=== PATIENT | male | born 1945 | race Caucasian/White ===

== ENCOUNTER 2024-06-19 12:42 | Observation (INO) | payer MEDICARE ==
[~2024-06-19] VITALS: Ht 185.4 cm; Wt 75.9 kg
[~2024-06-19 12:42] MED LIST: BREX1TAB PO; LEVO75TA10 PO; MIRT45TA83 PO; OMEP20TA20 PO; PARO40TA72 PO; PAROXETINE HCL JT; ROSU40TA88 PO
--- NOTE | 2024-06-19 14:12 | ERN ---
ED Note History of Present Illness Stated Complaint: FEEDING TUBE Chief Complaint: Other Problems Time Seen by MD: 12:45 Dictation: 78-year-old male presents to the ED for J-tube evaluation. As per , patient has history of esophageal cancer, had the J tube placed on June 02 and was recently discharged from the hospital 4 days ago. Patient was placed on continuos feedings since he is unable to take anything by mouth and mentioned that this morning they were unable to flush the J tube. Allergies: Coded Allergies: No Known Allergies (Unverified Allergy, Unknown, 05/22/24) Home Meds Reported Medications [Paroxetine Hcl] No Conflict Check, 20 ML JT DAILY 06/13/24 Rosuvastatin Calcium (Rosuvastatin Calcium) 40 Mg Tablet, 1 TAB PO DAILY 05/23/24 Omeprazole (Omeprazole) 20 Mg Tablet.dr, 1 TAB PO DAILY for 30 Days, #30 TAB 0 Refills 05/23/24 Brexpiprazole (Rexulti) 1 Mg Tablet, 1 TAB PO DAILY for 30 Days, #30 TAB 0 Refills 05/23/24 Mirtazapine (Mirtazapine) 45 Mg Tablet, 1 TAB PO HS for 30 Days, #30 TAB 0 Refil ls 05/23/24 Paroxetine HCl (Paroxetine HCl) 40 Mg Tablet, 1 TAB PO DAILY for 30 Days, #30 TAB 0 Refills 05/23/24 Levothyroxine Sodium (Levothyroxine Sodium) 75 Mcg Tablet, 1 TAB PO ACBKFST for 30 Days, #30 TAB 0 Refills 05/23/24 Past Medical History Past Medical History: Cancer, Pneumonia Surgical History: Other Surgical History Other: J TUBE Review of System Dictation Constitutional: Negative for fever,chills, and weight loss Eyes: Negative for injury, pain,redness, and discharge ENT: Negative for injury,pain or swelling Cardiovascular: Negative for chest pain, palpitations, and edema Respiratory: Negative for shortness of breath, cough, and wheezing, Abdomen/GI: Positive J tube evaluation Negative for abdominal pain, nausea, vomiting, diarrhea, and constipation Back: Negative for injury and pain : Negative for injury, bleeding and discharge MS/Extremity: Negative for injury and deformity Skin: Negative for rash, and discoloration Neuro: Negative for headache, weakness, numbness, tingling, and seizure Psych: Negative for suicide ideation, homicidal ideation, and hallucinations Initial Vital Sign VS Vital Signs Date Time Temp Pulse Resp B/P (MAP) Pulse Ox O2 Delivery O2 Flow Rate FiO2 06/19/24 12:44 98.2 95 18 120/78 94 Room Air 0 06/19/24 12:49 21 Physical Exam Dictation General: awake, alert, NAD Head/Face: Normocephalic, atraumatic Eyes: PERRL, EOMI, vision at baseline ENT: oral cavity clear, TMs clear, no signs of infection Neck: Trachea midline, supple, no nuchal rigidity Cardiovascular: RRR, normal S1/S2, No MRGs, no JVD Respiratory: CTAB, no respiratory distress, No rales or wheezes Abdomen: Soft, non-tender, non-distended, normal bowel sounds, no guarding or rebound. J tube in place, unable to flush Skin: Warm, dry, normal turgor, no rash MS/Extremity: Pulses equal, no cyanosis, neurovascular intact, FROM Neuro: COAx4, GCS 15, strength 5/5, CN 2-12 intact, normal cerebellar exam, normal gait, Psych: Normal behavior, mood, and affect normal Results (Laboratory/Radiology) Laboratory/Radiology Laboratory Tests Test 06/19/24 14:02 White Blood Count 10.5 K/uL (4.8-10.8) Red Blood Count 3.74 MIL/uL (4.50-6.20) L Hemoglobin 11.5 g/dL (14.0-18.0) L Hematocrit 35.5 % (42-54) L Mean Corpuscular Volume 94.9 fL (79-99) Mean Corpuscular Hemoglobin 30.7 pg (27.0-33.0) Mean Corpuscular Hemoglobin Concent 32.4 g/dL (32.0-36.0) Red Cell Distribution Width 14.6 % (11.0-15.5) Platelet Count 421 K/uL (130-400) H Mean Platelet Volume 10.3 fL (7.5-10.5) Immature Granulocyte % (Auto) 2.8 % (0-1) H Neutrophils (%) (Auto) 57.7 % (40.0-77.0) Lymphocytes (%) (Auto) 28.1 % (21.0-51.0) Monocytes (%) (Auto) 7.4 % (3.0-13.0) Eosinophils (%) (Auto) 3.0 % (0.0-8.0) Basophils (%) (Auto) 1.0 % (0.0-5.0) Neutrophils # (Auto) 6.1 K/uL (1.8-7.7) Lymphocytes # (Auto) 3.0 K/uL (1.0-4.8) Monocytes # (Auto) 0.8 K/uL (0.1-1.0) Eosinophils # (Auto) 0.32 K/uL (0.00-0.70) Basophils # (Auto) 0.10 K/uL (0.00-0.20) Absolute Immature Granulocyte (auto 0.29 K/uL (0-1) Nucleated Red Blood Cells 0.0 % (0.0-0.19) Prothrombin Time 10.7 SEC (9.6-11.6) Prothromb Time International Ratio 0.95 (0.85-1.15) Activated Partial Thromboplast Time 25.9 SEC (26.3-35.5) L Sodium Level 137 mmol/L (136-145) Potassium Level 4.5 mmol/L (3.5-5.1) Chloride Level 100 mmol/L (101-111) L Carbon Dioxide Level 28 mmol/L (21-32) Blood Urea Nitrogen 20 mg/dL (7-18) H Creatinine 1.0 mg/dL (0.5-1.3) Glomerular Filtration Rate Calc 78 mL/min (>90) Random Glucose 104 mg/dL (70-105) Total Calcium 9.4 mg/dL (8.5-10.1) Labs Reviewed?: Yes ED Course ED Course Orders Procedure Category Date Status Time Cbc With Differential LAB 06/19/24 Complete 13:19 Basic Metabolic Panel LAB 06/19/24 Complete 13:19 Pt And Ptt LAB 06/19/24 Complete 13:19 Dextrose 5 % And 0.9 PHA 06/19/24 In Process % Nacl (D5ns) 13:30 Current Medications Medications (Trade) Dose Ordered Sig/Arun Route PRN Reason Start Time Stop Time Status Last Admin Dose Admin Dextrose/Sodium Chloride 1,000 ml @ 125 mls/hr ONCE ONCE IV 06/19/24 13:30 06/19/24 21:29 06/19/24 14:34 Vital Signs Date Time Temp Pulse Resp B/P (MAP) Pulse Ox O2 Delivery O2 Flow Rate FiO2 06/19/24 14:01 98.2 92 18 120/78 96 Room Air* 0 06/19/24 12:49 98.2 95 18 120/78 94 Room Air* 0 06/19/24 12:44 98.2 95 18 120/78 94 Room Air 0 Medical Decision Making MDM MDM: Differential diagnosis: J-tube problem, J-tube replacement, feeding tube complication [id number] consult, accepts patient for admission Previous outside records reviewed: Old ER visits. Need for hospitalization: Patient does meet criteria for hospitalization. Need for emergency major/minor surgery: No Patient's prior external medical records from other ER visits were reviewed by me as indicated. Prior testing and results from previous visits were reviewed. Prior tests were taken into account with medical decision making and resource utilization, independent historian/historians were used to obtain complete medical history. I independently interpreted the test that were performed, results were reviewed by me and considered findings on radiology if ordered. Medical management and examination interpretation discussions were had by me with other qualified healthcare professionals as indicated for the patient's care. DX & DISP Disposition: Inpatient Decision to Admit Date: Jun 19, 2024 Decision to Admit Time: 15:40 Departure Impression: Primary Impression: Complication of feeding tube Condition: Stable Referrals: DONITA LARA M.D. (PCP) LIO ROMEO MD Jun 19, 2024 14:12
[2024-06-19 14:27] LABS: EOSINOPHILS # (AUTO) 0.32 K/uL (0.00-0.70); HEMATOCRIT 35.5 % (42-54); IMMATURE GRANULOCYTE ABSOLUTE 0.29 K/uL (0-1); LYMPHOCYTES % (AUTO) 28.1 % (21.0-51.0); MEAN CORPUSCULAR HEMOGLOBIN 30.7 pg (27.0-33.0); MEAN CORPUSCULAR HGB CONC 32.4 g/dL (32.0-36.0); MEAN CORPUSCULAR VOLUME 94.9 fL (79-99); MONOCYTES # (AUTO) 0.8 K/uL (0.1-1.0); MONOCYTES % (AUTO) 7.4 % (3.0-13.0); NEUTROPHILS # (AUTO) 6.1 K/uL (1.8-7.7); NEUTROPHILS % (AUTO) 57.7 % (40.0-77.0); PLATELET COUNT (AUTO) 421 K/uL (130-400); RED BLOOD CELL COUNT(AUTO) 3.74 MIL/uL (4.50-6.20); RED CELL DISTRIBUTION WIDTH 14.6 % (11.0-15.5); WHITE BLOOD COUNT (AUTO) 10.5 K/uL (4.8-10.8)
[2024-06-19 14:31] LABS: POTASSIUM 4.5 mmol/L (3.5-5.1)
[2024-06-19 14:33] LABS: INR 0.95 (0.85-1.15); PROTHROMBIN TIME 10.7 SEC (9.6-11.6)
[2024-06-19 14:34] LABS: PARTIAL THROMBOPLASTIN TIME 25.9 SEC (26.3-35.5)
[2024-06-19] MEDS: DEXTROSE 5 % AND 0.9 % NACL 1,000 ML IV ONE (14:34)
[2024-06-19] MEDS ORDERED: LACTULOSE 20 GM/30 ML UDCUP PO PRN (16:00)
[2024-06-19] MEDS ORDERED: doCUSate SODIUM 100 MG CAP PO PRN (16:00)
[2024-06-19] MEDS ORDERED: ondanSETRON 4MG INJ IV PRN (16:00)
[2024-06-19] MEDS ORDERED: DiphenhydrAMINE HCL 25 MG CAPSULE PO PRN (16:00)
[2024-06-19] MEDS ORDERED: ARTIFICAL TEARS SOL 15 ML OP PRN (16:00)
[2024-06-19] MEDS ORDERED: NITROGLYCERIN 0.4 MG SL TAB SL PRN (16:00)
[2024-06-19] MEDS ORDERED: LIDOCAINE HCL 2% VISCOUS 30 ML, MAG/ALUM/SIMETH 30ML 30 ML, DICYCLOMINE HCL 20 MG PO PRN (16:00)
[2024-06-19] MEDS ORDERED: BENZOCAINE/MENTH/CETYLPYRD CL 1 EACH LOZENGE MM PRN (16:00)
[2024-06-19] MEDS ORDERED: guaiFENesin SUGAR-FREE 100 MG/5 ML UDCUP PO PRN (16:00)
[2024-06-19] MEDS ORDERED: polyETHYLene GLYCol 3350 17 GM POWD.PACK PO PRN (16:00)
[2024-06-19] MEDS ORDERED: guaiFENesin-DM 200/20MG 10ML PO PRN (16:00)
[2024-06-19] MEDS ORDERED: acetaMINOPHEN 325 MG TAB PO PRN ×2 (16:00)
[2024-06-19] MEDS ORDERED: MAG/ALUM/SIMETH 30 ML UDCUP PO PRN (16:00)
[2024-06-19] MEDS: INSULIN LISpro 100 UNIT/ML 3ML SQ SCH (16:14)
--- NOTE | 2024-06-19 16:30 | NUR ---
PER DR STEIN, DR BRICEÑO NEEDS TO BE CONSULTED FOR POST OP ISSUES, DR STEIN MADE AWARE THAT DR BRICEÑO IS OUT OF TOWN, CONSULT WILL BE ATTEMPTED AGAIN FOR SIDE FRAMER SX
--- NOTE | 2024-06-19 17:59 | HP ---
[facility] HISTORY & PHYSICAL Date Patient Seen: Jun 19, 2024 Time of Visit: 1929 Supervising Physician: [Dr. Abdoul Mata ] Primary Care Physician: [Dr. Katharina Reed ] Outpatient Specialists: [Der. Campuzano-onco, Dr. Verduzco-psych ] Inpatient Consults: [Dr. Dupree-surgery ] PROBLEM LIST: Clogged J-Tube-POA Adenocarcinoma of esophagus EUS findings on 05/24/2024 Dysphagia secondary to above s/p J-tube placement 05/26/[address] Dupree Stomach CA HLD Hypertriglyceridemia Depression Anxiety Recent hospitalization for acute hypoxic respiratory failure, requiring BIPAP on 06/03/24, resolved Recent hospitalization bilateral pneumonia, worsening from arrival (Minimal left lung pulmonary infiltrates on 06/11/24) Recent hospitalization 2/2 small bowel obstruction, S/P exp laparotomy and Joseu enteroenterostomy 06/02/24 S/P Port-A-Cath placement. Recent hospitalization acute dehydration and electrolyte derangements Recent hospitalization for acute urinary retention requiring Sullivan catheter, remains a problem, discharged with sullivan catheter until a referral to urologist is obtained Hiatal hernia moderate in size, per CT 05/08/24 PLAN: -Admit to medsurg unit -Consult Dr. Dupree in am, dayteam to follow-up pls -IV fluid for hydration -Monitor electrolytes, replete PRN -Manage abdominal pain and N/V PRN -Resume Jevity 1.5 once J-tube is cleared for use by surgery team HPI: [Patient is a 78-year-old male with PMH significant for esophageal and stomach CA, depression, anxiety, HLD and hypothyroidism who has presented to the ED accompanied by his concerning a clogged J-tube. The claims that after she connected the patient to the Jevity 1.5 feeding pump, she went to attend to her errands and appointments and when she returned home, she noticed that the J- tube appears to be clogged. It was verified by the home health nurse and confirmed of the malfunction that led them to come to the ED for evaluation. Oth erwise, patient denies any other issues or concerns. Apparently, they waited for quite some time in the ED with staff attemted multiple times to fix the J-tube without success. Right before I came to visit the patient, the said that one of the nurses tried to use soda and was able to flush the J-tube finally. However, she wanted to make evaluate the tube because it was only inserted on 06/02 and she wants to make sure that everything was well. Physical assessment was unrevealing without erythema or discharges from the J-tube exit site. Goals of care were discussed with the patient and , verbalizing understanding and agreement. PAST MEDICAL HX: see above PAST SURGICAL HX: noncontributory SOCIAL HISTORY: No tobacco, ETOH, or illicit drug use Coded Allergies: No Known Allergies (Unverified Allergy, Unknown, 05/22/24) REVIEW OF SYSTEMS: 12 point ROS reviewed with patient. Pertinent positives mentioned above. Otherwise negative. PHYSICAL EXAM: GENERAL: alert, weak, awake oriented x 3 HEENT: EOMI, Sclera non icteric, moist mucosa NECK: Supple, no JVD, trachea midline LUNGS: Clear breath sounds bilaterally. No wheezes HEART: Regular rate and rhythm. Normal S1 and S2, without murmurs ABD: Abdomen soft, nontender. Bowel sounds present, mid-abdominal incision with nimco in palced, J-tube in situ EXT: No clubbing cyanosis or edema NEURO: Alert and oriented to person, follows commands Vital Signs (last 8hr) Date Time Temp Pulse Resp B/P (MAP) Pulse Ox O2 Delivery O2 Flow Rate FiO2 06/19/24 17:16 98.2 88 18 124/74 94 Room Air* 0 21 06/19/24 14:01 98.2 92 18 120/78 96 Room Air* 0 06/19/24 12:49 98.2 95 18 120/78 94 Room Air* 0 21 06/19/24 12:44 98.2 95 18 120/78 94 Room Air 0 LABS: Hematology Labs: Test 06/19/24 14:02 Range/Units White Blood Count 10.5 4.8-10.8 K/uL Red Blood Count 3.74 L 4.50-6.20 MIL/uL Hemoglobin 11.5 L 14.0-18.0 g/dL Hematocrit 35.5 L 42-54 % Mean Corpuscular Volume 94.9 79-99 fL Mean Corpuscular Hemoglobin 30.7 27.0-33.0 pg Mean Corpuscular Hemoglobin Concent 32.4 32.0-36.0 g/dL Red Cell Distribution Width 14.6 11.0-15.5 % Platelet Count 421 H 130-400 K/uL Mean Platelet Volume 10.3 7.5-10.5 fL Immature Granulocyte % (Auto) 2.8 H 0-1 % Neutrophils (%) (Auto) 57.7 40.0-77.0 % Lymphocytes (%) (Auto) 28.1 21.0-51.0 % Monocytes (%) (Auto) 7.4 3.0-13.0 % Eosinophils (%) (Auto) 3.0 0.0-8.0 % Basophils (%) (Auto) 1.0 0.0-5.0 % Neutrophils # (Auto) 6.1 1.8-7.7 K/uL Lymphocytes # (Auto) 3.0 1.0-4.8 K/uL Monocytes # (Auto) 0.8 0.1-1.0 K/uL Eosinophils # (Auto) 0.32 0.00-0.70 K/uL Basophils # (Auto) 0.10 0.00-0.20 K/uL Absolute Immature Granulocyte (auto 0.29 0-1 K/uL Nucleated Red Blood Cells 0.0 0.0-0.19 % Chemistry Labs: Test 06/19/24 14:02 Range/Units Sodium Level 137 136-145 mmol/L Potassium Level 4.5 3.5-5.1 mmol/L Chloride Level 100 L 101-111 mmol/L Carbon Dioxide Level 28 21-32 mmol/L Blood Urea Nitrogen 20 H 7-18 mg/dL Creatinine 1.0 0.5-1.3 mg/dL Glomerular Filtration Rate Calc 78 >90 mL/min Random Glucose 104 70-105 mg/dL Total Calcium 9.4 8.5-10.1 mg/dL Coagulation Labs: Test 06/19/24 14:02 Range/Units Prothrombin Time 10.7 9.6-11.6 SEC Prothromb Time International Ratio 0.95 0.85-1.15 Activated Partial Thromboplast Time 25.9 L 26.3-35.5 SEC DIAGNOSTICS / RADIOLOGY RESULTS: [ ] PLAN NEURO: Minimize central acting medications as possible. Maintain fall precautions, adequate lighting during the day PULMONARY: Supplemental 02 as needed. Maintain aspiration precautions at all times CARDIOVASCULAR: Follow hemodynamics. Vital signs per facility protocol GI & NUTRITION: Continue with nutritional support. Continue stool softeners and laxatives as needed. KIDNEYS & ELECTROLYTES: Strict monitoring of intake, output and overall fluid balance. Avoid nephrotoxic medications to the extent possible. Medications to be dosed according to renal function. Monitor electrolytes and replace as needed ENDOCRINE: Maintain blood glucose between 100-180 at all times. Hypoglycemia protocol in place INFECTIOUS DISEASE: Trend temperature, WBC and procalcitonin level Follow cultures, deescalate antibiotics as soon as possible. Panculture if new onset fever ONCOLOGY/HEMATOLOGY/COAGULATION: Monitor for s/s of bleeding Monitor hemoglobin, coagulation studies as needed SKIN: Pressure ulcer prevention per facility protocol Specialty mattress ORTHO/REHAB: Continue PT/OT Prophylaxis: Continue GI and DVT prophylaxis Code Status: Full Resuscitation Disposition: TBD Other: Total patient care time: 35 minutes MAKENNA REAL Jun 19, 2024 17:59
[2024-06-19] MEDS: FAMOTIDINE 20MG TAB PO SCH (21:00)
[2024-06-19] MEDS ORDERED: FAMOTIDINE 20MG VIAL IV SCH (21:00)
--- NOTE | 2024-06-19 21:23 | NUR ---
PATIENT DID NOT BRING HOME MEDICATIONS
[2024-06-19 22:00] VITALS: BP 133/82; PULSE 86; RESP 18; TEMP 99.8
[2024-06-20] MEDS: DiphenhydrAMINE HCL 50 MG/ML VIAL IV PRN (03:38)
[2024-06-20] MEDS: DEXTROSE 5 % AND 0.9 % NACL 1,000 ML IV SCH (03:40)
[2024-06-20 04:00] VITALS: BP 125/70; PULSE 82; RESP 20; TEMP 98.7
[2024-06-20] MEDS ORDERED: acetaMINOPHEN 325 MG TAB JT PRN (04:00)
[2024-06-20] MEDS ORDERED: guaiFENesin SUGAR-FREE 100 MG/5 ML UDCUP JT PRN (04:00)
[2024-06-20] MEDS: FAMOTIDINE 20MG VIAL IV SCH (07:55)
[2024-06-20 08:08] VITALS: BP 132/71; PULSE 88; RESP 20; TEMP 98.7
[2024-06-20 08:15] VITALS: O2SAT 95
[2024-06-20 11:46] VITALS: BP 119/78; PULSE 85; RESP 19; TEMP 98
--- NOTE | 2024-06-20 15:18 | DS ---
[facility] DISCHARGE SUMMARY Date Patient Seen: Jun 20, 2024 Time of Visit: 15:17 Supervising Physician: Dr. Abdoul Maat Primary Care Physician: [Dr. Katharina Reed ] Outpatient Specialists: [Der. Campuzano-onco, Dr. Verduzco-psych ] Inpatient Consults: [Dr. Dupree-surgery ] HOSPITAL COURSE: HPI (per admitting provider) Patient is a 78-year-old male with PMH significant for esophageal and stomach CA, depression, anxiety, HLD and hypothyroidism who has presented to the ED accompanied by his concerning a clogged J-tube. The claims that after she connected the patient to the Jevity 1.5 feeding pump, she went to attend to her errands and appointments and when she returned home, she noticed that the J- tube appears to be clogged. It was verified by the home health nurse and confirmed of the malfunction that led them to come to the ED for evaluation. Otherwise, patient denies any other issues or concerns. Apparently, they waited for quite some time in the ED with staff attemted multiple times to fix the J- tube without success. Right before I came to visit the patient, the said that one of the nurses tried to use soda and was able to flush the J-tube finally. However, she wanted to make evaluate the tube because it was only inserted on 06/02 and she wants to make sure that everything was well. Physical assessment was unrevealing without erythema or discharges from the J- tube exit site. Goals of care were discussed with the patient and , verbalizing understanding and agreement. The patient was treated for the following problems: Patient's J-tube was cleared in the ED, surgical team evaluated the patient and was able to flush the tube, education was provided regarding do's and don'ts with a J-tube, how to flush properly, including volume of water. Patient was discharged home under the care of his family. ACTIVE PROBLEM LIST FOR THE HOSPITALIZATION: Clogged J-Tube-POA CHRONIC PROBLEMS: continue previous management per PCP unless otherwise indicated Adenocarcinoma of esophagus EUS findings on 05/24/2024 Dysphagia secondary to above s/p J-tube placement 05/26/[address] Dupree Stomach CA HLD Hypertriglyceridemia Depression Anxiety Recent hospitalization for acute hypoxic respiratory failure, requiring BIPAP on 06/03/24, resolved Recent hospitalization bilateral pneumonia, worsening from arrival (Minimal left lung pulmonary infiltrates on 06/11/24) Recent hospitalization 2/2 small bowel obstruction, S/P exp laparotomy and Josue enteroenterostomy 06/02/24 S/P Port-A-Cath placement. Recent hospitalization acute dehydration and electrolyte derangements Recent hospitalization for acute urinary retention requiring Sullivan catheter, remains a problem, discharged with sullivan catheter until a referral to urologist is obtained Hiatal hernia moderate in size, per CT 05/08/24 [facility] FINDINGS/RECOMMENDATIONS: [ ] PROCEDURES: as mentioned above DISCHARGE MEDICATIONS: Pt hemodynamically stable and afebrile at time of discharge. PCP notified of patients admission, hospital course and discharge. PHYSICAL EXAM: GENERAL: alert, weak, awake oriented x 3 HEENT: EOMI, Sclera non icteric, moist mucosa NECK: Supple, no JVD, trachea midline LUNGS: Clear breath sounds bilaterally. No wheezes HEART: Regular rate and rhythm. Normal S1 and S2, without murmurs ABD: Abdomen soft, nontender. Bowel sounds present, mid-abdominal incision with nimco in palced, J-tube in situ EXT: No clubbing cyanosis or edema NEURO: Alert and oriented to person, follows commands FOLLOW-UP: Follow-up with PCP in 2-3 days RECOMMENDATIONS: See Discharge Instructions This case was seen and discussed with my supervising physician. More than 30 minutes spent on discharge process, including evaluation of the patient, discussion with nursing staff, medication reconciliation and follow-up appointments SCAR HUERTAS Jun 20, 2024 15:17
--- NOTE | 2024-06-20 15:26 | PN ---
PROGRESS NOTE Date of Service: Jun 20, 2024 Time of Service: 15:24 SUBJECTIVE: [ Patient presented to the hospital due to the fact that his G-tube was clogged. I personally spoke to the ER nurse invited to inject some soda into the tube weight for about 15-20 minutes then flushed it out. This seemed to work in the now the tube is functioning well. Patient is awaiting for his tube feeds to be restarted. Patient denies any pain. Patient indicates he has been tolerating his tube feeds well as well as having bowel function. ] REVIEW OF SYSTEMS PHYSICAL EXAM Awake, alert, oriented x3 Unlabored Regular rate and rhythm Abdomen soft, nontender, nondistended, incision clean dry, J-tube in place. J- tube flushes well. Vital Signs (last 8hr) Date Time Temp Pulse Resp B/P (MAP) Pulse Ox O2 Delivery O2 Flow Rate FiO2 06/20/24 11:46 98.1 85 19 119/78 96 Room Air 21 06/20/24 08:15 95 Room Air* 0 21 06/20/24 08:08 98.8 88 20 132/71 95 Room Air 21 LABS: Laboratory: Test 06/20/24 11:18 06/19/24 14:02 Range/Units Whole Blood Glucose 105 70-110 MG/DL White Blood Count 10.5 4.8-10.8 K/uL Red Blood Count 3.74 L 4.50-6.20 MIL/uL Hemoglobin 11.5 L 14.0-18.0 g/dL Hematocrit 35.5 L 42-54 % Mean Corpuscular Volume 94.9 79-99 fL Mean Corpuscular Hemoglobin 30.7 27.0-33.0 pg Mean Corpuscular Hemoglobin Concent 32.4 32.0-36.0 g/dL Red Cell Distribution Width 14.6 11.0-15.5 % Platelet Count 421 H 130-400 K/uL Mean Platelet Volume 10.3 7.5-10.5 fL Immature Granulocyte % (Auto) 2.8 H 0-1 % Neutrophils (%) (Auto) 57.7 40.0-77.0 % Lymphocytes (%) (Auto) 28.1 21.0-51.0 % Monocytes (%) (Auto) 7.4 3.0-13.0 % Eosinophils (%) (Auto) 3.0 0.0-8.0 % Basophils (%) (Auto) 1.0 0.0-5.0 % Neutrophils # (Auto) 6.1 1.8-7.7 K/uL Lymphocytes # (Auto) 3.0 1.0-4.8 K/uL Monocytes # (Auto) 0.8 0.1-1.0 K/uL Eosinophils # (Auto) 0.32 0.00-0.70 K/uL Basophils # (Auto) 0.10 0.00-0.20 K/uL Absolute Immature Granulocyte (auto 0.29 0-1 K/uL Nucleated Red Blood Cells 0.0 0.0-0.19 % Prothrombin Time 10.7 9.6-11.6 SEC Prothromb Time International Ratio 0.95 0.85-1.15 Activated Partial Thromboplast Time 25.9 L 26.3-35.5 SEC Sodium Level 137 136-145 mmol/L Potassium Level 4.5 3.5-5.1 mmol/L Chloride Level 100 L 101-111 mmol/L Carbon Dioxide Level 28 21-32 mmol/L Blood Urea Nitrogen 20 H 7-18 mg/dL Creatinine 1.0 0.5-1.3 mg/dL Glomerular Filtration Rate Calc 78 >90 mL/min Random Glucose 104 70-105 mg/dL Total Calcium 9.4 8.5-10.1 mg/dL DIAGNOSTICS / RADIOLOGY: [ ] ASSESSMENT: [ Patient with metastatic esophageal cancer. Patient has a G-tube that was clamped. But now it is functioning well. ] PLAN: [ Had long talk with the patient and his regarding keeping the tube clean of all sediment. Tube has been flushed well. If it appears to be getting clogged patient is a flushes with soda that would help clear any kind of debris. They indicate they understand. ] JEFFREY BRICEÑO MD Jun 20, 2024 15:26
--- NOTE | 2024-06-20 15:55 | NUR ---
DCP Pt awake, alert, oriented X3 lives with spouse Zuri Cruz [phone]. PCP is Katharina Reed. Pt has a walker, [facility], and Loree NAVA for formula. Pt is up with assist and anticipates discharge for home Addendum: 06/20/24 at 1557 by CHE WILLIAMSON RN CM Amended: Links added.
--- NOTE | 2024-06-20 16:45 | NUR ---
DC NOTE DC INSTRUCTIONS AND FOLLOW UP APPOINTMENTS, FAMILY TEACHING IN FLUSHING J-TUBE PER DR. BRICEÑO RECOMMENDATION, RETURN DEMONSTRATION AND VERBALIZED UNDERSTANDING. PIV REMOVED, CATHETER INTACT, DENIES ANY PAIN OR DISCOMFORT. PT IS WHEELED DOWNSTAIRS WITH SALES ESTIMATOR INTO VIA PRIVATE CAR. NO FURTHER COMMENTS OR CONCERNS AT THIS TIME. Addendum: 06/20/24 at 2 by JACKY TRIVEDI LVN LVN LATE ENTRY- REMOVED 11 VALERIE FROM ABDOMEN. TOLERATED WELL, NO SIGN OF REDNESS OR INFECTION.
== END 2024-06-20 16:45 | disposition home or self-care (01) ==
LOC: EDH 12:42 → EDHIP 15:30 → 3DH 20:41
PROVIDERS: ADMIT Internal Medicine Pulmonary Disease; ATTEND Internal Medicine Pulmonary Disease
DX: K94.13 Enterostomy malfunction (principal); F41.9 Anxiety disorder, unspecified; J18.9 Pneumonia, unspecified organism; R33.9 Retention of urine, unspecified; C15.9 Malignant neoplasm of esophagus, unspecified; E03.9 Hypothyroidism, unspecified; E78.1 Pure hyperglyceridemia; F32.A Depression, unspecified; E86.0 Dehydration; K44.9 Diaphragmatic hernia without obstruction or gangrene; R13.10 Dysphagia, unspecified; Z85.01 Personal history of malignant neoplasm of esophagus; Z85.028 Personal history of other malignant neoplasm of stomach; Z79.899 Other long term (current) drug therapy; Z98.890 Other specified postprocedural states
CPT/HCPCS: 99284; 80048; 85025; 85610; 85730; 82948 ×3; 36415; 96374; 96361; 96375; G0378 ×25; J7042; J1200; J3490

== ENCOUNTER 2025-01-09 09:29 | Day surgery (SDC) | payer MEDICARE ==
[2025-01-09] VITALS (13 sets, daily range): BP systolic 90–114; BP diastolic 57–69; PULSE 74–85; RESP 14–18; TEMP 97.3–97.6
[~2025-01-09] VITALS: Ht 185.4 cm; Wt 65.8 kg
[~2025-01-09 09:29] MED LIST changes: +ARIP1SOL; -BREX1TAB PO; -LEVO75TA10 PO; +MIRT-72; -MIRT45TA83 PO; -OMEP20TA20 PO; +PARO10OR; -PARO40TA72 PO; -PAROXETINE HCL JT; +POTA20LI57; -ROSU40TA88 PO; +[UNRECOGNIZED DRUG - CODE] PEG
[2025-01-09] MEDS ORDERED: labetalol PEG (11:33)
[2025-01-09] MEDS ORDERED: BISA-72 PO (11:33)
[2025-01-09] MEDS ORDERED: NYST100033 PEG (11:33)
[2025-01-09] MEDS ORDERED: DOCU100C33 PEG (11:33)
[2025-01-09] MEDS ORDERED: heparin SQ (11:33)
[2025-01-09] MEDS ORDERED: PANT40I IV (11:33)
[2025-01-09] MEDS ORDERED: METOPROLOL PEG (11:33)
[2025-01-09] MEDS ORDERED: LIDOCAINE PF 100MG/5ML (2%) SYRINGE 5ML ONE (12:14)
--- NOTE | 2025-01-09 12:36 | EKG ---
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
--- NOTE | 2025-01-09 13:24 | NUR ---
Full and complete discharge instructions given to Patient and Family both verbally and in writing. Explained Colonoscopy procedure precautions and follow up. All dressings to chest tube sites secure dry and intact. No evidence of bleeding, bruising or hematoma. Bird patent to bedside gravity. All questions answered. PICC secure. EMS notified of transfer. Family at bedside appearing supportive. Trach patent with sat 96-97%. Patient aox4. Denies c/o pain Attempted to call report to receiving Nurse at [facility] at 13:20 pm. Not successful.
--- NOTE | 2025-01-09 14:04 | NUR ---
[facility] Addendum: 01/09/25 at 1520 by ZAFAR MCCLAIN RN RN [facility]
== END 2025-01-09 15:20 | disposition short-term general hospital (02) ==
LOC: DAH 09:29 → ENDO 15:20
PROVIDERS: ATTEND Internal Medicine Gastroenterology
DX: R13.10 Dysphagia, unspecified (principal); K21.00 Gastro-esophageal reflux disease with esophagitis, without bleeding; D49.0 Neoplasm of unspecified behavior of digestive system; K91.89 Other postprocedural complications and disorders of digestive system; R93.3 Abnormal findings on diagnostic imaging of other parts of digestive tract; I10 Essential (primary) hypertension; E78.5 Hyperlipidemia, unspecified; F41.9 Anxiety disorder, unspecified; F32.A Depression, unspecified; Z88.6 Allergy status to analgesic agent; Z87.891 Personal history of nicotine dependence; Z98.0 Intestinal bypass and anastomosis status; Z90.89 Acquired absence of other organs; Z79.899 Other long term (current) drug therapy
CPT/HCPCS: 43235; 93005; J2003; J2704; A4620; A4215 ×2; A4223; A4222; A4221; A4663; A4606; Q9968; J3490